=== PATIENT | male | born 1995 | race Caucasian/White ===

== ENCOUNTER 2023-05-08 09:33 | Emergency (ER) | payer SELFPAY ==
[2023-05-08 09:40] VITALS: BP 151/83; PULSE 69; RESP 20; TEMP 36.6; O2SAT 99; BMI 28.7
--- NOTE | 2023-05-08 09:48 | XR_ITS ---
The [address] [address] Patient Name: MANN COVARRUBIAS MRN: [id number] date: 1995 Sex: M Assigned Patient Location: ER Current Patient Location: ED.[facility] Accession/Order Number: [id number] Exam Date: 05/08/2023 09:55 Report Date: 05/08/2023 10:11 At the request of: LISANDRO TREVINO Procedure: XR hip LT 2V w/ pelvis EXAM: XR hip LT 2V w/ pelvis HISTORY: pain COMPARISON: None TECHNIQUE: Two-view left hip and AP view pelvis study was performed with 3 images obtained in total. FINDINGS: Stabilizing plate and screws seen about the left hip joint. Moderate spurring of the inferomedial left acetabulum with mild to moderate generalized degenerative changes about the left hip joint. No definite acute fracture or dislocation. Right hip joint appears grossly unremarkable. Soft tissues are grossly within normal limits. XR/XR hip LT 2V w/ pelvis IMPRESSION: Postoperative changes about the left hip joint appears grossly unremarkable. [id number] degenerative changes about the left hip joint. No definite acute fracture or dislocation. Follow-up as needed. Electronically authenticated by: CHAO IRELAND Date: 05/08/2023 10:11
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
== END 2023-05-08 10:37 | disposition home or self-care (01) ==
PROVIDERS: Emergency Provider Emergency Medicine
DX: M25.552 Pain in left hip (principal)
CPT/HCPCS: 73502; 99283